=== PATIENT | male | born 1955 | race Caucasian/White ===

== ENCOUNTER 2019-06-15 11:37 | Inpatient (IN) | payer OTHER ==
[~2019-06-15] VITALS: Ht 177.8 cm; Wt 74.8 kg
[~2019-06-15 11:37] MED LIST: CEPH500 PO; Catapres0.1 MG PO; METH10 PO; Naprosyn500 MG PO; PROM25 PO; SILSUL1TC TOP; SULTRIDS PO
[2019-06-15 12:38] LABS: BASOPHILS PERCENT AUTO 1 % (0-2); EOSINOPHILS ABSOLUTE AUTO 0.09 K/mm3 (0.00-0.68); EOSINOPHILS PERCENT AUTO 1 % (0-6); Hematocrit 39.3 % (37.0-53.0); Hemoglobin 12.7 g/dL (13.5-17.5); IMMATURE GRAN ABSOLUTE AUTO 0.07 K/mm3 (0.00-0.10); IMMATURE GRAN PERCENT AUTO 1 % (0-1); LYMPHOCYTES ABSOLUTE AUTO 2.11 K/mm3 (0.84-5.20); LYMPHOCYTES PERCENT AUTO 20 % (21-46); MONOCYTES ABSOLUTE AUTO 1.07 K/mm3 (0.16-1.47); MONOCYTES PERCENT AUTO 10 % (4-13); Mean Corpuscular HGB 34.7 pg (26.0-34.0); Mean Corpuscular HGB Conc 32.3 g/dL (31.5-36.5); Mean Corpuscular Volume 107 fL (80-100); Mean Platelet Volume 8.8 fL (9.1-12.4); NEUTROPHILS ABSOLUTE AUTO 7.01 K/mm3 (1.96-9.15); NEUTROPHILS PERCENT AUTO 67 % (41-73); Platelet Count 155 K/mm3 (150-400); RDW Coefficient Variation 15.9 % (11.7-14.2); RDW Standard Deviation 63.6 fL (35.1-46.3); Red Blood Cell Count 3.66 M/mm3 (4.30-5.90); White Blood Cell Count 10.45 K/mm3 (4.00-11.30)
[2019-06-15 12:54] LABS: Alanine Aminotransfer (ALT/SGP 40 U/L (12-78); Albumin, Blood 1.8 g/dL (3.4-5.0); Albumin/Globulin Ratio 0.3 (0.8-1.8); Alk Phos 220 U/L (50-136); Anion Gap 4 mmol/L (6-16); Aspartate Aminotrans (AST/SGOT 79 U/L (12-37); Bilirubin, Total 4.2 mg/dL (0.1-1.0); Blood Urea Nitrogen 5 mg/dL (8-24); Bun/Creatinine Ratio 9.6 (12.0-20.0); CO2, Blood 31 mmol/L (21-32); Calcium, Blood 7.9 mg/dL (8.5-10.1); Chloride, Blood 102 mmol/L (98-108); Creatinine, Blood 0.52 mg/dL (0.60-1.20); Globulin, Blood 6.8 g/dL (2.2-4.0); Glomerular Filtration Rate >60 (60-); Glucose, Blood 118 mg/dL (70-99); Potassium, Blood 3.9 mmol/L (3.5-5.5); Sodium, Blood 137 mmol/L (136-145); Total Protein, Blood 8.6 g/dL (6.4-8.2)
[2019-06-15 15:55] LABS: International Normalized Ratio 1.43
[2019-06-15 18:31] LABS: Percent Saturation 79.8 % (20.0-50.0)
[2019-06-15 18:34] LABS: Bilirubin, Direct 2.2 mg/dL (0.0-0.3); Bilirubin, Indirect 2.2 mg/dL (0.1-0.7); Bilirubin, Total 4.4 mg/dL (0.1-1.0)
[2019-06-15 18:44] LABS: Source, Urine Clean Catch
[2019-06-15 18:56] LABS: Blood, Urine 2+ (Neg); Glucose Qualitative, Urine Neg (Neg); Ketones, Urine 1+ (Neg); Leukocyte Esterase, Urine Neg (Neg); Nitrite, Urine Neg (Neg); Protein, Urine Neg (Neg); Specific Gravity, Urine 1.015 (1.003-1.022); Urobilinogen, Urine 4+ (Normal)
[2019-06-15 19:10] LABS: U Amphetamine Screen Not Detected; U Barbituate Screen Not Detected; U Benzodiazapine Screen Not Detected; U Buprenorphine Screen Not Detected; U Cannabinoids Screen Not Detected; U Cocaine Screen Not Detected; U Methadone Screen DETECTED; U Methamphetamine Screen DETECTED; U Opiates Screen DETECTED; U Oxycodone Screen Not Detected; U Phencyclidine Screen Not Detected; U Propoxyphene Screen Not Detected
--- NOTE | 2019-06-15 19:10 | NUR ---
ASSUME CARE RECEIVED REPORT FROM VERNA AJ. ASSUMED CARE OF PT. PT SITTING ON EDGE OF BED, PUTTING ON CLOTHES ADAMANT ABOUT GOING FOR A WALK AROUND THE UNIT. THIS RN IN ROOM EXPLAINING TO PT THAT HE NEEDS TO REST IN BED TO DECREASE EDEMA IN HIS LOWER EXTREMITIES, AND ALSO EXPLAINING HOSPITAL POLICY REGARDING COVID-19. PT INDICATED UNDERSTANDING. CALL LIGHT, POSSESSIONS IN REACH, WILL CONTINUE TO MONITOR.
[2019-06-15 19:17] LABS: Bilirubin, Urine 1+ (Neg)
[2019-06-15 19:18] LABS: Appearance, Urine Clear (Clear); Color, Urine Orange (P-Yellow)
[2019-06-15 19:19] LABS: Squamous Epithelial Cells Rare /hpf (Few); White Blood Cells, Urine 0-2 /hpf (0-5)
[2019-06-15 19:20] LABS: Bacteria Rare /hpf
[2019-06-16 04:55] LABS: BASOPHILS ABSOLUTE AUTO 0.08 K/mm3 (0.00-0.23); BASOPHILS PERCENT AUTO 1 % (0-2); EOSINOPHILS ABSOLUTE AUTO 0.12 K/mm3 (0.00-0.68); EOSINOPHILS PERCENT AUTO 1 % (0-6); Hematocrit 37.2 % (37.0-53.0); Hemoglobin 11.9 g/dL (13.5-17.5); IMMATURE GRAN ABSOLUTE AUTO 0.05 K/mm3 (0.00-0.10); IMMATURE GRAN PERCENT AUTO 1 % (0-1); LYMPHOCYTES ABSOLUTE AUTO 2.62 K/mm3 (0.84-5.20); LYMPHOCYTES PERCENT AUTO 25 % (21-46); MONOCYTES PERCENT AUTO 9 % (4-13); Mean Corpuscular HGB 34.3 pg (26.0-34.0); Mean Corpuscular Volume 107 fL (80-100); NEUTROPHILS ABSOLUTE AUTO 6.74 K/mm3 (1.96-9.15); NEUTROPHILS PERCENT AUTO 64 % (41-73); Platelet Count 143 K/mm3 (150-400); RDW Coefficient Variation 15.9 % (11.7-14.2); RDW Standard Deviation 62.5 fL (35.1-46.3); Red Blood Cell Count 3.47 M/mm3 (4.30-5.90); White Blood Cell Count 10.61 K/mm3 (4.00-11.30)
[2019-06-16 05:17] LABS: Alanine Aminotransfer (ALT/SGP 35 U/L (12-78); Albumin, Blood 1.7 g/dL (3.4-5.0); Albumin/Globulin Ratio 0.3 (0.8-1.8); Alk Phos 179 U/L (50-136); Anion Gap 3 mmol/L (6-16); Aspartate Aminotrans (AST/SGOT 65 U/L (12-37); Bilirubin, Total 4.4 mg/dL (0.1-1.0); Blood Urea Nitrogen 5 mg/dL (8-24); Bun/Creatinine Ratio 8.9 (12.0-20.0); CO2, Blood 32 mmol/L (21-32); Calcium, Blood 7.7 mg/dL (8.5-10.1); Chloride, Blood 102 mmol/L (98-108); Creatinine, Blood 0.56 mg/dL (0.60-1.20); Globulin, Blood 6.2 g/dL (2.2-4.0); Glomerular Filtration Rate >60 (60-); Glucose, Blood 85 mg/dL (70-99); Potassium, Blood 3.5 mmol/L (3.5-5.5); Sodium, Blood 137 mmol/L (136-145); Total Protein, Blood 7.9 g/dL (6.4-8.2)
--- NOTE | 2019-06-16 06:45 | NUR ---
SHIFT SUMMARY PT RESTING COMFORTABLY AT THIS TIME, NO S/S ACUTE DISTRESS NOTED. NO ACUTE EVENTS NOTED T/O SHIFT. VS STABLE. NO FURTHER ATTEMPTS TO WALK AROUND THE UNIT. PT COOPERATIVE WITH CARES. DENIES ANY NEEDS AT THIS TIME. CALL LIGHT, POSSESSIONS IN REACH, BED IN LOWEST POSITION WITH ALARM ON. WILL CONTINUE TO MONITOR UNTIL DAY RN ASSUMES CARE.
[2019-06-16 07:07] LABS: HBSAG SCREEN Negative (Negative); HEP A AB, IGM Negative (Negative); HEP B CORE AB, IGM Negative (Negative); HEP B CORE AB, TOT Negative (Negative); HEP C VIRUS AB >11.0 (0.0-0.9)
--- NOTE | 2019-06-16 07:45 | NUR ---
PT. UP IN ROOM FULLY CLOTHED AND YELLING HE'S LEAVING. BECOMING VERBALLY ABUSIVE AND CURSING AT US. WANTING TO GO DOWN AND GET COFFEE, TOLD HIM WE COULD GET HIM SOME HERE AND THAT BREAKFAST WOULD BE HERE SOON AND THERE WOULD BE COFFEE ON. HESHAM HOUSER RN STAYED WITH PT. AND CALLED DR. SOTO TO LET HIM KNOW WHAT WAS GOING ON. RELATED HE WOULD BE TO SEE HIM IN 10-15 MINUTES. IN THE MEANTIME BKFST TRAYS CAME AND BETWEEN MYSELF AND THE CHARGE WE TALKED HIM INTO HAVING HIS BREAKFAST AND TO WAIT FOR THE TO COME SEE HIM.
--- NOTE | 2019-06-16 18:30 | NUR ---
PT. WITHOUT INCIDENT SINCE THIS MORNING. PT WENT FOR THE CT OF THE LUE AND I NOTIFIED DR. CARVALHO OF THE CONSULT FOR ORTHO BY DR. SOTO.
[2019-06-16 19:24] LABS: Vancomycin, Trough 15.8 ug/mL (5.0-10.0)
--- NOTE | 2019-06-16 21:25 | NUR ---
CALL FROM TELE MONITOR AT 2014 STATING TELE WAS OFF PT. PT NOT FOUND IN ROOM OR BATHROOM. TELE BOX SITTING ON BEDSIDE TABLE. INFORMED CHARGE NURSE WHO STATED GIVE PT UNTIL 2099. PT STILL NOT BACK AT 2114. HOSPITALIST KERLINE NOTIFIED AT THIS TIME.
--- NOTE | 2019-06-16 22:27 | NUR ---
RECIEVED CALL FROM ER AT 2134 STATING PT HAD RETURNED AND WANTED TO COME BACK TO HIS ROOM. CALL TO HOSPITALIST KERLINE WHO STATED OK TO ACCEPT PT BACK. NEW ORDER FOR URINE TOX SCREEN. PT'S BEHAVIOR IS BASELINE AT THIS TIME.
--- NOTE | 2019-06-17 05:36 | NUR ---
SHIFT SUMMARY: VSS. AFEB. A/OX3. SOME ECCENTRIC BEHAVIORS LIKE HOWLING IN HIS BED AND COMING OUT IN THE [place] TO LOUDLY MOAN AND TELL ALL PASSING STAFF ABOUT AN ANKLE CRAMP HE WAS EXPERIENCING. REMAINS PLEASANT AND FRIENDLY. REDIRECTS WELL. NO NOTABLE BEHAVIOR CHANGES AFTER PT RETURNED FROM LEAVING THE HOSPITAL. SLEPT THROUGH MOST OF THE NIGHT. RUE CONT TO BE LARGELY SWOLLEN, RED, AND WARM TO TOUCH. PT DENIES PAIN BUT STATES THE ARM ITCHES. NO URINE COLLECTED FOR TOX SCREEN YET. INDEPENDENT IN ROOM. NO ACUTE CHANGES OVERNIGHT. IV ABT INFUSED ORDERED. WILL CONT TO MONITOR.
[2019-06-17 07:24] LABS: U Amphetamine Screen Not Detected; U Barbituate Screen Not Detected; U Benzodiazapine Screen Not Detected; U Buprenorphine Screen Not Detected; U Cannabinoids Screen Not Detected; U Cocaine Screen Not Detected; U Methadone Screen Not Detected; U Methamphetamine Screen Not Detected; U Opiates Screen Not Detected; U Oxycodone Screen Not Detected; U Phencyclidine Screen Not Detected; U Propoxyphene Screen Not Detected
--- NOTE | 2019-06-17 17:58 | NUR ---
HE IS STILL HERE AFTER THREATENING THIS AM AND ONCE THIS AFTERNOON TO LEAVE AMA. HE HAS BEEN NOTIFIED THAT HE CANNOT GO OUTSIDE FOR ANY REASON UNLESS HE SIGNS AN AMA FORM AND WE DC HIS SL AND TELE FIRST. ALL BENEFITS OF STAYING HAVE BEEN DISCUSSED. HIS MOTHER CALLED ME ONCE TODAY. HE HAS TALKED ON THE PHONE TODAY WITH A FEW DIFFERENT PEOPLE. RH AND ARM CONTINUE TO BE DISCOLORED AND SWOLLEN. TELE NSR. IV ANTIBIOTICS CONTINUE SCHEDULED.
[2019-06-17 19:34] LABS: Vancomycin, Trough 18.1 ug/mL (5.0-10.0)
--- NOTE | 2019-06-18 06:12 | NUR ---
SHIFT SUMMARY: AFEB. A/OX3. SLEPT THROUGH MOST OF THE NIGHT. R ARM REDNESS AND SWELLING APPEARS SLIGHTLY IMPROVED FROM YESTERDAY. PT DENIES PAIN. NO THREATS TO LEAVE DURING THE NIGHT. INDEPENDENT IN ROOM. IV ABT INFUSED PER ORDERS.
[2019-06-18] MEDS ORDERED: DOXY100 PO (14:27)
[2019-06-18] MEDS ORDERED: Aldactone100 MG PO (14:27)
--- NOTE | 2019-06-18 14:55 | NUR ---
PT IS DCD HOME. THIS MMORNING HE WAS SCHEDULED FOR AN I/D OF HIS RIGHT HAND BUT DECLINED THE PROCEDURE STATING HE "DOESNT NEED IT". DR SHEPARD AND DR MOE BOTH SPOKE WITH THE PT AT THE BEDSIDE. PT REPORTS THAT HIS HAND IS BETTER SINCE YESTERDAY AND HE CAN TAKE ABO AT HOME. THIS WAS REPORTED TO B[employer]QUET[employer] MACHINE OPERATOR HELPER AND DR MOE. DR WROTE ORDERS FOR DC. MEDS WERE FAXED TO PHARMACY ON FILE. ALL PERSONAL BELONGINGS SENT WITH PT. PT HAD ALREADY PULLED HIS IV. ALL INSTRUCTIONS REVIEWED WITH PT WHO VERBALIZED AN UNDERSTANDING.
== END 2019-06-18 15:00 | disposition home or self-care (01) | DRG 602 ==
LOC: ER 11:37 → MEDS 17:11
PROVIDERS: Nurse Practitioner Acute Care; Physician Assistant; ADMIT Internal Medicine
DX: L03.113 Cellulitis of right upper limb (principal); J18.9 Pneumonia, unspecified organism; R18.8 Other ascites; L02.511 Cutaneous abscess of right hand; M65.9 Synovitis and tenosynovitis, unspecified; K74.60 Unspecified cirrhosis of liver; D64.9 Anemia, unspecified; F10.20 Alcohol dependence, uncomplicated; F17.210 Nicotine dependence, cigarettes, uncomplicated; M54.9 Dorsalgia, unspecified; G89.29 Other chronic pain; F15.10 Other stimulant abuse, uncomplicated; R74.0 Nonspecific elevation of levels of transaminase and lactic acid dehydrogenase [LDH]; K80.20 Calculus of gallbladder without cholecystitis without obstruction; Z79.891 Long term (current) use of opiate analgesic
CPT/HCPCS: 36415; 71045; 73201; 76705; 80053; 80202; 81001; 82140; 82247; 82248; 82607; 82728; 82746; 83540; 83550; 83605; 83690; 83735; 85025; 85610; 86317; 86704; 86705; 86708; 86709; 86803; 87040; 87340; 90471; 90714; 96365; 96372-59; 96375; 99285-25; A9270-GY; G0480; J0690; J0692; J1644; J2250; J2704; J3010; J3370; J3475; J7050; Q9967